=== PATIENT | female | born 1985 | race Caucasian/White ===

== ENCOUNTER 2024-10-31 11:50 | Inpatient (IN) | payer OTHER ==
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
[2024-10-31 14:30] LABS: Basophils % (A) 0 %; Eosinophils # (A) 0.1 k/uL (0-0.7); Eosinophils % (A) 1 %; HCT 39.5 % (34.0-46.0); HGB 13.1 gm/dL (11.4-16.0); Lymphocytes # (A) 1.5 k/uL (1.0-4.8); Lymphocytes % (A) 11 %; MCH 30.2 pg (25.0-35.0); MCHC 33.2 g/dL (31.0-37.0); Mean Platelet Volume 6.9; Monocytes # (A) 0.4 k/uL (0-1.0); Monocytes % (A) 3 %; Neutrophils % (A) 84 %; Platelet Count 253 k/uL (150-450); RBC 4.35 m/uL (3.80-5.40); RDW 12.1 % (11.5-15.5); WBC 13.1 k/uL (3.8-10.6)
[2024-10-31] MEDS: SODIUM CHLORIDE 0.9% 1,000 ML IV ONE ×2 (14:31→15:00)
[2024-10-31 14:45] LABS: ALT 28 U/L (4-34); AST 44 U/L (14-36); African American GFR (CKD) >90 (>60 ml/min/1.73 sqM); Albumin 4.5 g/dL (3.5-5.0); Alkaline Phosphatase 54 U/L (38-126); Anion Gap 14 mmol/L; Blood Urea Nitrogen 14 mg/dL (7-17); Carbon Dioxide 22 mmol/L (22-30); Chloride 104 mmol/L (98-107); Non-African American GFR(CKD) >90 (>60 ml/min/1.73 sqM); Potassium 3.7 mmol/L (3.5-5.1); Sodium 140 mmol/L (137-145); Total Bilirubin 0.2 mg/dL (0.2-1.3); Total Protein 6.8 g/dL (6.3-8.2)
[2024-10-31 14:50] LABS: Glucose 48 mg/dL (74-99)
[2024-10-31] MEDS ORDERED: NALOXONE 0.4 MG/ML 1 ML VIAL IV PRN (15:00)
[2024-10-31 15:03] LABS: Glucose,Whole Blood 80 mg/dL (70-110)
[2024-10-31] MEDS: SODIUM CHLORIDE 0.9% 1,000 ML IV SCH (15:05)
[2024-10-31 15:25] LABS: Appearance,Urine Cloudy (Clear); Bacteria,Urine Rare /hpf; Bilirubin,Urine Negative (Negative); Blood,Urine Negative (Negative); Color,Urine Light Yellow; Glucose,Urine (UA) Negative (Negative); Ketones,Urine 1+ (Negative); Leukocyte Esterase,Urine Small (Negative); Mucus,Urine Rare /hpf; Nitrite,Urine Negative (Negative); PH, Urine 6.5 (5.0-8.0); Protein,Urine Negative (Negative); RBC,Urine 3 /hpf (0-5); Specific Gravity,Urine 1.018 (1.001-1.035); Squamous Epithelial Cell,Urine 3 /hpf (0-4); Urobilinogen,Urine <2.0 mg/dL (<2.0); WBC,Urine 20 /hpf (0-5)
[2024-10-31] MEDS: ACETAMINOPHEN TAB 325 MG TAB PO PRN (16:29)
[2024-10-31] MEDS: AMPICILLIN-SULBACTAM 3 GM in SODIUM CHLORIDE 0.9% 100 ML IVPB SCH (17:27)
[2024-10-31] MEDS: LORazepam 2 MG/ML INJ IV PRN (17:29)
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
[2024-10-31 18:07] LABS: Glucose,Whole Blood 104 mg/dL (70-110)
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
[2024-10-31] MEDS: MORPHINE SULFATE 2 MG/ML SYRINGE IVP PRN (22:39)
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
[2024-11-01 06:38] LABS: Basophils % (A) 0 %; Eosinophils # (A) 0.2 k/uL (0-0.7); Eosinophils % (A) 3 %; HCT 35.7 % (34.0-46.0); HGB 11.5 gm/dL (11.4-16.0); Lymphocytes # (A) 1.6 k/uL (1.0-4.8); Lymphocytes % (A) 27 %; MCH 29.9 pg (25.0-35.0); MCHC 32.3 g/dL (31.0-37.0); MCV 92.6 fL (80.0-100.0); Monocytes # (A) 0.3 k/uL (0-1.0); Monocytes % (A) 5 %; Neutrophils # (A) 3.7 k/uL (1.3-7.7); Neutrophils % (A) 63 %; Platelet Count 197 k/uL (150-450); RBC 3.86 m/uL (3.80-5.40); RDW 12.4 % (11.5-15.5); WBC 5.8 k/uL (3.8-10.6)
[2024-11-01 06:48] LABS: African American GFR (CKD) >90 (>60 ml/min/1.73 sqM); Anion Gap 5 mmol/L; Blood Urea Nitrogen 11 mg/dL (7-17); Calcium 7.3 mg/dL (8.4-10.2); Carbon Dioxide 23 mmol/L (22-30); Chloride 109 mmol/L (98-107); Glucose 79 mg/dL (74-99); Magnesium 1.8 mg/dL (1.6-2.3); Non-African American GFR(CKD) >90 (>60 ml/min/1.73 sqM); Potassium 3.9 mmol/L (3.5-5.1); Sodium 137 mmol/L (137-145)
--- NOTE | 2024-11-01 07:17 | XR ---
EXAMINATION TYPE: XR chest 1V DATE OF EXAM: 11/01/2024 CLINICAL HISTORY: Difficulty breathing progress study. Trauma. TECHNIQUE: Single AP portable upright view of the chest is obtained. COMPARISON: Chest x-ray and CT from one day earlier FINDINGS: Chronic emphysematous change without suspicious new focal air space opacity, pleural effusi on, or pneumothorax seen. The cardiac silhouette size is stable and within normal limits. Overlyin g EKG leads are present. The osseous structures are intact. IMPRESSION: Chronic emphysematous change without acute pulmonary process. [facility], , 11/01/2024 7:14 AM
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
[2024-11-01] MEDS: MORPHINE SULFATE 4 MG/ML SYRINGE IVP PRN (11:26)
[2024-11-01 14:33] LABS: Glucose,Whole Blood 130 mg/dL (70-110)
[2024-11-01 16:58] LABS: Glucose,Whole Blood 97 mg/dL (70-110)
[2024-11-01] MEDS: LORazepam 2 MG/ML INJ IV PRN (20:45)
[2024-11-01 21:11] LABS: Glucose,Whole Blood 114 mg/dL (70-110)
[2024-11-01] MEDS: LORazepam 1 MG TAB PO PRN (23:21)
[2024-11-02] MEDS: ONDANSETRON 4 MG/2 ML VIAL IVP PRN (00:25)
--- NOTE | 2024-11-02 04:58 | XR ---
EXAM: XR Chest, 1 View CLINICAL HISTORY: ITS.REASON XR Reason: sob TECHNIQUE: Frontal view of the chest. COMPARISON: X-ray dated 11/01/2024 FINDINGS: Lungs: Unremarkable. No consolidation. Pleural space: Unremarkable. No pneumothorax. Heart: Unremarkable. No cardiomegaly. Mediastinum: Unremarkable. Normal mediastinal contour. Bones/joints: Unremarkable. No acute fracture. IMPRESSION: Normal chest x-ray.
[2024-11-02 06:31] LABS: Glucose,Whole Blood 106 mg/dL (70-110)
[2024-11-02] MEDS: LORazepam 0.5 MG TAB PO PRN (06:46)
[2024-11-02] MEDS: THIAMINE 100 MG TAB PO SCH (08:52)
[2024-11-02 11:18] LABS: Glucose,Whole Blood 102 mg/dL (70-110)
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
[2024-11-02 16:10] LABS: Glucose,Whole Blood 106 mg/dL (70-110)
[2024-11-02 20:03] LABS: Glucose,Whole Blood 113 mg/dL (70-110)
[2024-11-03 06:23] LABS: Glucose,Whole Blood 94 mg/dL (70-110)
[2024-11-03 11:38] LABS: Glucose,Whole Blood 92 mg/dL (70-110)
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
[2024-11-03] MEDS: KETOROLAC 15 MG/ML 1 ML VIAL IVP SCH (12:36)
[2024-11-03] MEDS: LORazepam 2 MG/ML INJ IV PRN (12:43)
[2024-11-03] MEDS: HYDROcodone/APAP 5-325MG 1 EACH TAB PO PRN (14:18)
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
[2024-11-03 16:42] LABS: Glucose,Whole Blood 109 mg/dL (70-110)
[2024-11-03 20:35] LABS: Glucose,Whole Blood 92 mg/dL (70-110)
[2024-11-04 06:23] LABS: Glucose,Whole Blood 107 mg/dL (70-110)
[2024-11-04 08:21] VITALS: BP 130/87; RESP 16; TEMP 97.8
[2024-11-04 08:53] VITALS: PULSE 56
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
[2024-11-04] MEDS: methocarbamoL 500 MG TAB PO SCH (11:22)
[2024-11-04 11:45] LABS: Glucose,Whole Blood 88 mg/dL (70-110)
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
[2024-11-04] MEDS: HYDROcodone/APAP 7.5-325MG 1 EACH TAB PO PRN (14:01)
== END 2024-11-04 16:26 | disposition home or self-care (01) | DRG 200 ==
LOC: EC 11:50 → OBSVTOIN 15:00 → EEVIPCON 15:00 → 6NMEDSUR 15:00 → 3SCARD 15:18 → 4SSUR 11-01 08:02
PROVIDERS: ADMIT Surgery; ATTEND Surgery
DX: T79.7XXA Traumatic subcutaneous emphysema, initial encounter (principal); E87.20 Acidosis, unspecified; F10.20 Alcohol dependence, uncomplicated; E16.2 Hypoglycemia, unspecified; D72.829 Elevated white blood cell count, unspecified; S01.21XA Laceration without foreign body of nose, initial encounter; F17.290 Nicotine dependence, other tobacco product, uncomplicated; M19.011 Primary osteoarthritis, right shoulder; I95.89 Other hypotension; N31.9 Neuromuscular dysfunction of bladder, unspecified; S01.111A Laceration without foreign body of right eyelid and periocular area, initial encounter; Y04.0XXA Assault by unarmed brawl or fight, initial encounter; Y07.499 Other family member, perpetrator of maltreatment and neglect; Z98.1 Arthrodesis status
CPT/HCPCS: 36415; 70450; 70486; 70491; 71045; 71046; 71260; 72100; 72125; 80048; 80053; 81001; 83605; 83735; 85025; 87040; 93005; 96361; 96365; 96375; 99285